=== PATIENT | female | born 1995 | race African-American/Black ===

== ENCOUNTER 2018-07-23 12:45 | Emergency (ER) | payer BC, OTHER ==
[~2018-07-23] VITALS: Ht 172.7 cm; Wt 64.5 kg
[2018-07-23 12:51] VITALS: BP 141/81; PULSE 53; RESP 18; Ht 172.7 cm; Wt 64.5 kg
[2018-07-23] MEDS ORDERED: IBUPROFEN 600 MG TAB PO ONE (14:30)
[2018-07-23] MEDS ORDERED: IBUP-1542 PO (16:11)
--- NOTE | 2018-07-23 18:09 | ERD ---
ER Documentation Chief Complaint Chief Complaint glf-wound to the left eyebrow, left knee pain HPI This is a 22-year-old female who presents to the emergency room with complaint of laceration to left forehead and left knee. 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 No LOC, no nausea/vomiting. Pt is weight bearing, ambulates with slow gait. Nkda. No medical problems. ROS All systems reviewed and are negative except as per history of present illness. Medications Home Meds Active Scripts Ibuprofen* (Motrin*) 600 Mg Tab, 600 MG PO Q6 PRN for PAIN for 10 Days, #30 TAB Prov:JILLIAN BANUELOS CEMENT SIDE LASTER 07/23/18 Allergies Allergies: Coded Allergies: No Known Allergy (Unverified , 07/23/18) PMhx/Soc Medical and Surgical Hx: pt denies Medical Hx History of Surgery: Yes (Hernia Sx) Anesthesia Reaction: No Hx Alcohol Use: No Hx Substance Use: Yes (marijuana) Hx Tobacco Use: No Smoking Status: Never smoker FmHx Family History: No diabetes, No coronary disease, No other Physical Exam Vitals Vital Signs Date Temp Pulse Resp B/P (MAP) Pulse Ox O2 O2 Flow FiO2 Time Delivery Rate 07/23/18 97.7 53 18 141/81 100 12:51 (101) Physical Exam Const: No acute distress Head: No contusions, no deformity, no crepitus. 1 cm laceration on left orbit in eyebrow. Eyes: Normal Conjunctiva, EOMI ENT: Normal External Ears, Nose and Mouth. Neck: Full range of motion. No meningismus. No cervical spinal tenderness. Resp: Clear to auscultation bilaterally Cardio: Regular rate and rhythm, no murmurs Abd: Soft, non tender, non distended. Normal bowel sounds Skin: No petechiae or rashes Back: No midline or flank tenderness Ext: No cyanosis, or edema. LLE: no swelling, no deformity, no laxity or decreased ROM at knee. Patella in alignment. Tender at center of patella with small hematoma. Neur: Awake and alert Psych: Normal Mood and Affect Results 24 hrs Laboratory Tests Test 07/23/18 14:46 POC Beta HCG, Qualitative NEGATIVE Current Medications Medications Dose Sig/Pravin Start Time Status Last (Trade) Ordered Route PRN Stop Time Admin Dose Reason Admin Ibuprofen 600 mg ONCE ONCE 07/23/18 DC 07/23/18 (Motrin) PO 14:30 07/23/18 14:39 14:31 Procedures/MDM This is a 22-year-old female patient who presents to the emergency room with complaint of laceration of her left eye and pain in left knee. ED COURSE: The patient was stable throughout ED course. I kept the patient informed of diagnostic imaging results throughout the ED course. DIAGNOSTIC IMAGING: There is no acute fracture or dislocation. The joint spaces are maintained. No significant joint effusion is present. The soft tissues are unremarkable. Read by radiologist. PROCEDURES: Laceration Repair by me: Anesthesia: none Location: left eybrow Tendon/Joint/Nerves: No injury Foreign body: None detected after copious irrigation and exploration Technique: Steri-strips and dermabond Post Closure Length: 1 cm Patient's bleeding was minimal, no evidence of neurologic injury, vascular injury, or foreign body. Patient is appropriate for outpatient follow up. 48 hour wound check. Scar minimization instructions given. Laceration repair with instructions on wound care, wound check and follow-up. Left knee wrapped in Ld wrap with instructions on rest and RICE. Patient verbalized understanding of signs and symptoms of worsening of condition and when to return to Patient verbalized understanding of signs and symptoms of worsening of condition and when to seek emergent medical treatment. Departure Diagnosis: Primary Impression: Eye laceration Additional Impression: Knee sprain Condition: Stable Patient Instructions: R.I.C.E., Laceration, Chin, Skin Glue Repair Referrals: [facility] YOU HAVE RECEIVED A MEDICAL SCREENING EXAM AND THE RESULTS INDICATE THAT YOU DO NOT HAVE A CONDITION THAT REQUIRES URGENT TREATMENT IN THE EMERGENCY DEPARTMENT. FURTHER EVALUATION AND TREATMENT OF YOUR CONDITION CAN WAIT UNTIL YOU ARE SEEN IN YOUR DOCTORS OFFICE WITHIN THE NEXT 1-2 DAYS. IT IS YOUR RESPONSIBILITY TO MAKE AN APPOINTMENT FOR FOLOW-UP CARE. IF YOU HAVE A PRIMARY DOCTOR --you should call your primary doctor and schedule an appointment IF YOU DO NOT HAVE A PRIMARY DOCTOR YOU CAN CALL OUR PHYSICIAN REFERRAL HOTLINE AT IF YOU CAN NOT AFFORD TO SEE A PHYSICIAN YOU CAN CHOSE FROM THE FOLLOWING [facility] [address] [facility] [address] [facility] [facility] [address] [facility]. [facility] [address] [facility]. [facility] [address] [facility]. [facility]. [address] Additional Instructions: Thank you very much for allowing us to participate in your care. Your health and safety is our top priority at [facility]. Call your primary care doctor TOMORROW for an appointment during the next 2-4 days and bring all the information and medications prescribed. Have prescriptions filled and follow precisely the directions on the label. If the symptoms get worse and your provider is unavailable, return to the Emergency Department immediately. KEEP LD ON KNEE FOR 1-2 WEEKS UNTIL PAIN IMPROVES. YOU MAY NEED FUTURE ASSESSMENT IF PAIN CONTINUES, FOLLOW-UP WITH PRIMARY CARE PROVIDER. USE IBUPROFEN FOR PAIN AND COMFORT. LACERATION TO EYE: GLUE AND STERISTRIPS WILL DISSOLVE WITH TIME. DO NOT SCRUB OR USE PETROLEUM PRODUCTS. RETURN TO ER WITH SIGNS OF INFECTION INCLUDING SWELLIG, HEAT, REDNESS, DRAINAGE. JILLIAN BANUELOS NP Jul 23, 2018 18:09
== END 2018-07-23 16:36 | disposition home or self-care (01) ==
LOC: FTE 12:45
DX: S01.112A Laceration without foreign body of left eyelid and periocular area, initial encounter (principal); S83.92XA Sprain of unspecified site of left knee, initial encounter; W01.198A Fall on same level from slipping, tripping and stumbling with subsequent striking against other object, initial encounter; Y92.9 Unspecified place or not applicable
CPT/HCPCS: 73562; 81025